=== PATIENT | female | born 1980 | race Asian ===

== ENCOUNTER 2019-07-29 10:25 | Outpatient (CLI) | payer OTHER | END 2019-07-29 19:48 | disposition home or self-care (01) | LOC: RESP 10:25 | DX: M54.16 Radiculopathy, lumbar region (principal) ==

== ENCOUNTER 2019-10-14 08:50 | Day surgery (SDC) | payer OTHER | END 2019-10-14 10:46 | disposition home or self-care (01) | LOC: OR 08:50 | PROC: 3E0R33Z Introduction of Anti-inflammatory into Spinal Canal, Percutaneous Approach (ICD-10-PCS; principal; 2019-10-14) | PROC: B01BYZZ Fluoroscopy of Spinal Cord using Other Contrast (ICD-10-PCS; 2019-10-14) | DX: M50.123 Cervical disc disorder at C6-C7 level with radiculopathy (principal) | CPT/HCPCS: J1020 ==